=== PATIENT | male | born 1985 | race Caucasian/White ===

== ENCOUNTER 2022-04-05 20:00 | Emergency (ER) | payer OTHER, SELFPAY ==
[2022-04-05 20:01] VITALS: BP 129/86; PULSE 95; RESP 16; TEMP 37.6; O2SAT 98; BMI 30.8
--- NOTE | 2022-04-05 20:27 | EX.ED.DYSGE1 ---
HPI History of Present Illness Chief Complaint: Cold Sx Informant: patient Onset/Context/Timing Onset: Yesterday Context: Gradual Onset Timing: Continuous Quality: achy Location: all over Current Severity: Moderate Maximum Severity: Moderate Associated Symptoms Associated Symptoms ED: cough Narrative Narrative: Since yesterday, patient has gradual onset of runny nose congestion, cough, severe malaise and fatigue as well as myalgias and a headache. A little diarrhea. No shortness of breath or chest pain. 2 positive COVID tests at home, his has COVID currently as well. He presents because his work states in order to be excused from work, he needs an official test done by a healthcare provider and his home tests were not good enough. [facility] Medical History (Updated 04/05/22 @ 20:40 by Simona Esteves) PTSD (post-traumatic stress disorder) Vasectomy planned Medical History no medical history no medical history Home Medications Unobtainable 04/05/22 [History Last Taken Unknown] Allergy/AdvReac Type Severity Reaction Status Date / Time No Known Allergies Allergy Verified 04/05/22 20:01 Surgical History (Updated 04/05/22 @ 20:40 by Simona Esteves) History of appendectomy History of tonsillectomy History of tonsillectomy Social History Smoking Status: Current some day smoker tobacco type: cigars ROS ROS ED Constitutional Constitutional ED: Reports body ache(s), fatigue, headache(s) and malaise; Denies chills or fever(s) Eyes Eyes: Denies change in vision or diplopia ENT ENT ED: Reports headache(s), nasal congestion and rhinorrhea; Denies sore throat Cardiovascular Cardiovascular: Denies chest pain or palpitations Respiratory/Chest Respiratory/Chest: Reports cough; Denies dyspnea or dyspnea on exertion Gastrointestinal Gastrointestinal: Reports diarrhea; Denies abdominal pain, nausea or vomiting Genitourinary Genitourinary ED: Denies dysuria or hematuria Musculoskeletal Musculoskeletal: Denies back pain or neck pain Integumentary Denies abscess or rash Neurologic Neurologic: Reports headache(s); Denies paresthesias or weakness Psychiatric Psychiatric: Denies anxiety or suicidal thoughts EXAM Physical Exam Const Vital Signs: 04/05/22 20:01 04/05/22 20:41 Temperature 99.6 F H Temperature Source Temporal Pulse Rate 95 Respiratory Rate 16 Respiratory Effort Normal Non-Labored Respiratory Pattern Normal Blood Pressure 129/86 H Blood Pressure Mean 100 Pulse Ox 98 Oxygen Delivery Method Room Air Positive well nourished and well developed Constitutional Narrative: Malaised-appearing, no distress General Appearance ED: well developed and NAD HEENT Reports moist mucous membranes normocephalic and atraumatic Eyes PERRL and EOMs intact bilaterally Neck full ROM and supple Resp normal respiratory effort Effort and Inspection: able to speak in complete sentences Back/Spine General Back: other FROM Extremity normal to inspection General Extremety ED: Negative for edema General Extremity: Negative for edema Neuro oriented x3, CN's II-XII intact bilaterally and no sensory deficits noted Sensorium / Orientation: awake and alert Motor Exam: strength 5/5 throughout Psych mental status grossly normal Skin no rashes or lesions noted and no wounds MDM MDM MDM Narrative Medical decision making narrative: Rapid COVID is positive. Patient is well, he is vaccinated, I do not think he will benefit from the oral antivirals at this time. Supportive care advised, we discussed reasons to return, his pulse ox is excellent at 98% on room air. Discharge Plan Triage Chief Complaint: Cold Sx ED Provider: Ino Rivera Dx/Rx/DC Orders Clinical Impression: COVID-19 Instructions: Coronavirus Disease 2019 (COVID-19): Caring for Yourself or Others Prescriptions: No Action Unobtainable Stand Alone Forms: ED Work / School Excuse [facility] Care Provider: [place] Referrals[place] [Primary Care Provider] - As Needed Activity Restrictions/Additional Instructions: Try to get a home portable pulse oximeter and closely watch your oxygen levels periodically. If you stay below 90% for more than a minute or so, and/or you are feeling like your breathing is getting worse, return to the emergency department for further evaluation. Disposition Disposition: Home, Self Care
[2022-04-05] MEDS: Ibuprofen 600 MG Tablet PO (20:41)
[2022-04-05 21:16] VITALS: BP 123/79; PULSE 93; RESP 20; TEMP 37.8; O2SAT 98
== END 2022-04-05 21:18 | disposition home or self-care (01) ==
PROVIDERS: Emergency Provider Emergency Medicine; Visit Provider Emergency Medicine
DX: U07.1 COVID-19 (principal); F17.290 Nicotine dependence, other tobacco product, uncomplicated
CPT/HCPCS: 87811; 99283

== ENCOUNTER 2023-11-25 13:20 | Emergency (ER) | payer OTHER, BC, SELFPAY ==
[2023-11-25] VITALS (8 sets, daily range): BP systolic 119–180; BP diastolic 72–100; PULSE 58–71; RESP 13–18; TEMP 36.2–36.3; O2SAT 93–99; BMI 32.1
--- NOTE | 2023-11-25 14:01 | EDS_ITS ---
HPI History of Present Illness Chief Complaint: Palpitations [facility] Medical History (Updated 11/25/23 @ 17:[address] Cam Turner DO) PTSD (post-traumatic stress disorder) Vasectomy planned Home Medications NK 11/25/23 [History Last Taken Unknown] Allergy/AdvReac Type Severity Reaction Status Date / Time No Known Allergies Allergy Verified 11/25/23 13:24 Surgical History (Updated 04/05/22 @ 20:40 by Simona Esteves) History of appendectomy History of tonsillectomy History of tonsillectomy Social History Smoking Status: Current some day smoker tobacco type: cigars EXAM Physical Exam Const Vital Signs: 11/25/23 13:21 11/25/23 13:32 11/25/23 14:20 Temperature 97.3 F L Temperature Source Temporal Pulse Rate 71 71 64 Respiratory Rate 16 16 14 Blood Pressure 180/100 H 128/88 H Blood Pressure Mean 126 101 Pulse Ox 99 97 96 Oxygen Delivery Method Room Air Room Air Room Air 11/25/23 15:00 11/25/23 16:00 11/25/23 15:30 Temperature Temperature Source Pulse Rate 63 64 Respiratory Rate 14 13 Blood Pressure 128/86 H 128/89 H Blood Pressure Mean 100 99 Pulse Ox 95 99 Oxygen Delivery Method Room Air Room Air 11/25/23 16:00 11/25/23 17:00 11/25/23 17:31 Temperature 97.2 F L Temperature Source Pulse Rate 60 58 L 65 Respiratory Rate 18 16 16 Blood Pressure 127/86 H 119/84 H 139/72 H Blood Pressure Mean 94 95 94 Pulse Ox 93 98 96 Oxygen Delivery Method Room Air MDM MDM MDM Narrative Medical decision making narrative: HISTORY OF PRESENT ILLNESS: 38-year-old male presents with concern for palpitations. He states the symptoms been ongoing intermittently for a week. States he gets feeling his heart is racing. Denies any syncope. Denies any headache. Denies any chest pain. Patient denies sudden onset of pain, no tearing sensation, no migratory symptoms, no new numbness, weakness or loss of sensation. Patient denies family history or personal history of Connective tissue disorders (Marfan's Syndrome, Terence Danlos etc) denies any bleeding diathesis. Denies any urinary complaints. Denies any recent illnesses. The patient denies recent surgery in the last 4 weeks or immobilization in the last 3 days, denies previous diagnosis of DVT or PE, hemoptysis, unilateral leg swelling or malignancy with treatment the last 6 months or palliative. No estrogen use noted. REVIEW OF SYSTEMS: Pertinent positives: Palpitations Pertinent negatives: Headache, chest pain, neck pain, shortness of breath, fever, cough, melena, hematochezia, hematemesis, hemoptysis, leg swelling PHYSICAL EXAM: Nursing triage notes reviewed, Vital signs reviewed Constitutional: please see mdm HENT: MMM Eyes: Pupils equal round and reactive to light, Extraocular muscles intact Neck: No stridor, no JVD, full neck ROM Lungs: Clear to auscultation, No wheezing or rales. No increased work of breathing, no conversational dyspnea, no accessory muscle use, no nasal flaring. No respiratory distress noted Heart: Regular rate and rhythm, No murmurs, No rubs and No gallops, 2+ distal pulses (radial, femoral, posterior tibial) in all extremities Abdomen: Soft, there is no tenderness, rigidity, rebound or guarding, no obvious peritoneal signs, no palpable pulsatile abdominal masses, no auscultated abdominal bruit : No CVAT Extremities: No edema Neuro: No focal neurological deficits, cranial nerves II through XII intact, 5/5 strength in all extremities. Intact sensation to light touch in all extremities, 2+ reflexes bilateral patella tendons. Normal gait. No ataxia. Skin: No rash or lesions noted MEDICAL DECISION MAKING: Chief Complaint: Palpitations External records reviewed: No recent ED visits, no recent cardiac catheterizatio ns, stress test or echocardiograms noted in the chart Factors affecting care: none Social determinants of health: none History obtained from others: none Consults: none [facility] Narrative: Patient was initially hypertensive otherwise afebrile nontoxic-appearing had a normal heart rate. I considered the following differential diagnosis: Arrhythmia, ACS, PE, dehydration, electrolyte disturbance, psychogenic cause ALL IMAGES (IF OBTAINED) HAVE BEEN PERSONALLY REVIEWED AND INTERPRETED BY MYSELF. EKG with normal sinus rhythm, left ax deviation, normal intervals, no WPW, no Brugada or ARVD. I have personally reviewed the patient's chest x-ray. Chest x-ray is unremarkable for pulmonary edema, pneumothorax, pneumonia or focal cardiopulmonary abnormality. CBC without leukocytosis, severe anemia, no thrombocytopenia. BMP without evidence of significant electrolyte abnormalities, no anion gap, no acute kidney injury. High-sensitivity troponin is negative, no evidence of myocardial ischemia The synthesis of the patient's history, physical exam, labs and images suggest no acute life-limiting etiology. Etiology is unclear. Specifically no signs of arrhythmia, ACS, PE, dehydration, electrolyte disturbance. The etiology the patient's symptoms are unclear. He will require outpatient follow-up for testing specifically Holter monitor and echocardiogram. This was discussed with the patient he agreed. The patient and/or family, caregivers express understanding. The patient and/or family, caregivers agrees with the plan. Shared decision making: I will have a discussion with the patient and or visitors regarding risk/benefits of further testing or admission. They will be made aware of of the risk/benefits inherent in this decision they will be given the opportunity to voice understanding. Total critical care time today provided was at least 0 minutes. This excludes separately billable procedures. Critical care time (if documented) is secondary to the patient having high probability of clinically significant/life threatening deterioration in the patient's condition which required my urgent intervention. Impression: 1. Palpitations Dispo: Discharge home This note was generated with [employer] dictation software. It may contain incorrect words, spelling, and punctuation that were not noted in review of the chart prior to signing. Lab Data Labs: Laboratory Results - last 24 hr 11/25/23 15:55 WBC 8.2 RBC 5.01 Hgb 14.2 Hct 43.4 MCV 86.6 MCH 28.3 MCHC 32.7 RDW Std Deviation 41.1 RDW Coeff of Michael 13.1 Plt Count 286 MPV 10.1 Immature Gran % (Auto) 0.400 Neut % (Auto) 62.2 Lymph % (Auto) 28.1 [place] % (Auto) 7.3 Eos % (Auto) 1.3 Baso % (Auto) 0.7 Absolute Neuts (auto) 5.1 Absolute Lymphs (auto) 2.31 Nucleated RBC % 0 Sodium 139 Potassium 3.9 Chloride 106 Carbon Dioxide 28.0 Anion Gap 5 BUN 20 H Creatinine 1.10 Estim Creat Clear Calc 100.92 Est GFR (MDRD) Af Amer 97 Est GFR (MDRD) Non-Af 80 BUN/Creatinine Ratio 18.2 Glucose 97 Calcium 9.2 Troponin I High Sens 4 Radiography Diagnostic Testing: Clinical Impression(s) from Imaging Studies Chest X-Ray 11/25/23 15:40 IMPRESSION: Normal x-ray examination of the chest. Electronically Signed: Zion Rosa MD at 16:50 EDT , Discharge Plan Triage Chief Complaint: Palpitations ED Provider: Cam Turner Dx/Rx/DC Orders Clinical Impression: Heart palpitations Instructions: ED Palpitations Prescriptions: No Action NK Primary Care Provider: [facility] Referrals: [facility] [Primary Care Provider] - Activity Restrictions/Additional Instructions: Thank you for trusting us with your care today! Please drink plenty of fluids and eat a healthy diet. Please take Tylenol (2 pills, 650 mg), ibuprofen (2 pills, 400 mg) every 6 hours as needed for pain and fever control. Please return to the emergency department if your symptoms change or worsen. Please follow with your primary care physician for further outpatient evaluation and management. Disposition Disposition: Home, Self Care Discharge Date/Time: 11/25/23 17:34
--- NOTE | 2023-11-25 15:40 | RAD_ITS ---
STUDY: X-RAY CHEST REASON FOR EXAM: Male, 38 years old. fatigue TECHNIQUE: Single AP portable view of the chest. COMPARISON: 05/29/2012. FINDINGS: The lungs are clear and expanded. There is no demonstrated pleural abnormality. Normal size heart. Normal mediastinum and torin. Normal visualized pulmonary arteries. Normal visualized aortic arch and descending thoracic aorta. Normal visualized thoracic spine. Normal visualized ribs, clavicles, and shoulders. There is no demonstrated abnormality of the visualized soft tissue structures of the upper abdomen. RAD/Chest 1 View (Portable) IMPRESSION: Normal x-ray examination of the chest. Electronically Signed: Zion Rosa MD at 16:50 EDT ,
[2023-11-25] MEDS: 0.9% Normal Saline (1000mL) 1,000 ML 999 ML IV (15:53)
[2023-11-25 16:05] LABS: Absolute Lymphocyte Count 2.31 X10^3/uL (0.83-4.51); Absolute Neutrophil Count 5.1 X10^3/uL (2.0-7.7); Basophil# 0.06 X10^3/uL; Basophil% 0.7 % (0-1); Eosinophil# 0.11 X10^3/uL; Eosinophils% 1.3 % (0-5); Hematocrit 43.4 % (40-54); Hemoglobin 14.2 g/dL (13.0-16.5); Lymphocyte # 2.31 X10^3/ul (0.83-4.51); Lymphocyte % 28.1 % (19-41); Mean Corp Hgb Conc 32.7 g/dL (32-36); Mean Corpuscular Hgb 28.3 pg (27.0-32.0); Mean Corpuscular Volume 86.6 fL (80-94); Mean Platelet Vol. 10.1 fl (6.2-12.0); Monocyte% 7.3 % (0-10); NRBC Flagged by Analyzer 0 % (0-5); Neutrophil # 5.12 X10^3/uL (2.7-7.7); Neutrophil % 62.2 % (47-70); Platelet Count 286 K/mm3 (150-450); RBC Distribution Width CV 13.1 % (11.6-14.6); RBC Distribution Width SD 41.1 fl (35.1-43.9); Red Blood Count 5.01 M/mm3 (4.6-6.2); White Blood Count 8.2 K/mm3 (4.4-11.0)
[2023-11-25 16:25] LABS: Anion Gap 5 (5-15); BUN 20 mg/dL (7-18); BUN/Creat Ratio 18.2 RATIO (10-20); Calcium,Total 9.2 mg/dL (8.5-10.1); Chloride 106 mmol/L (98-107); EST Glomerular Filtration Rate 80 mL/min (>60); Est Glom Filt Rate - Afr Amer 97 mL/min (>60); Estimated Creatinine Clearance 100.92 ml/min; Glucose 97 mg/dL (74-106); Potassium 3.9 mmol/L (3.5-5.1); Sodium Level 139 mmol/L (136-145); Troponin-I HS 4 pg/mL (3.0-78.0)
--- NOTE | 2023-11-25 16:58 | NURSING ---
DENA CHOI, CALLED ABOUT PATIENT
== END 2023-11-25 17:34 | disposition home or self-care (01) ==
PROVIDERS: Emergency Provider Emergency Medicine; Visit Provider Emergency Medicine
DX: R00.2 Palpitations (principal); F17.290 Nicotine dependence, other tobacco product, uncomplicated
CPT/HCPCS: 71045; 80048; 84484; 85025; 93005; 96360; 96361; 99284; J7030; A4216